=== PATIENT | male | born 1940 | race Caucasian/White ===

== ENCOUNTER 2018-04-01 07:35 | Day surgery (SDC) | payer MEDICARE ==
[2018-03-27 14:29] VITALS: BMI 30.7
[~2018-04-01 07:35] MED LIST: LACTATED RINGERS 1,000 ML IV SCH; MOXIFLOXACIN HCL 0.5% DROPS 3 ML BTL OP ONE; TETRACAINE 0.5% OPHTH (PF) DROPS 4 ML BTL OP ONE; TIMOLOL 0.5% OPHTH DROPS 5 ML BTL OP ONE
[2018-04-01] MEDS: PHENYLEPHRINE 2.5% OPHTH DRP 2ML OP NR ×3 (08:39→08:59)
[2018-04-01 08:42] VITALS: RESP 16; TEMP 97.9
[2018-04-01] MEDS: CYCLOPENTOLATE 1% OPHTH SOLN 2 ML BTL OP ONE ×3 (08:44→09:04)
[2018-04-01] MEDS ORDERED: LIDOCAINE 1% 20 ML VIAL (10MG/ML) FOR IV START INTRADERMA ONE (08:56)
[2018-04-01] MEDS ORDERED: fentaNYL (PF) 50 MCG/ML 2 ML AMP ONE (09:31)
[2018-04-01] MEDS ORDERED: MIDAZOLAM 2 MG/2 ML VIAL ONE (09:31)
[2018-04-01] MEDS ORDERED: BALANCED SALT IRRIG SOLN COMB2 15 ML IRRIG.SOLN IRRIGATION ONE (09:41)
[2018-04-01] MEDS ORDERED: HYALURONATE SODIUM INTRAOCULAR 1 EACH SYRINGE (12MG/ML) INTRAOCULA ONE (09:41)
[2018-04-01] MEDS ORDERED: EPINEPHrine (PF) 0.3 ML in BALANCED SALT IRRIG SOLN COMB2 500 ML IRRIGATION ONE (09:45)
[2018-04-01] MEDS ORDERED: LIDOCAINE 1% (PF) 10MG/ML VIAL MISCELLANE ONE (09:51)
[2018-04-01] MEDS ORDERED: ATROPINE OPHTH SOLN 1% 5ML BTL RIGHT EYE ONE (09:54)
--- NOTE | 2018-04-01 10:13 | P.OP ---
Date of Procedure: 04/01/18 Preoperative Diagnosis: NS & PSC Postoperative Diagnosis: same Procedure(s) Performed: PIOL, OD Implants: B&L AO1UV 20.75 Anesthesia: MAC Surgeon: London Spencer Estimated Blood Loss (ml): 0 Pathology: none sent Disposition: same day Indications for Procedure: blurry vision Operative Findings: No complications
[2018-04-01 10:34] VITALS: BP 139/74; PULSE 44
--- NOTE | 2018-04-01 11:03 | OP ---
OPERATIVE REPORT DATE OF SURGERY: 04/01/2018 SURGEON: Dr. London Spencer. PREOPERATIVE DIAGNOSIS: Nuclear sclerosis and subcapsular cataract. 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 OPERATION: Phacoemulsification of cataract and intraocular lens implant of the right eye. ANESTHESIA: Topical. ESTIMATED BLOOD LOSS: None. SPECIMEN TAKEN: None. NARRATIVE: After obtaining appropriate consent, the patient was brought to the operating room where he was placed on a cardiac care unit nurse and prepped and draped in the usual sterile manner. He was approached from his right temporal side. A 5.5 mm Mamta ring was inked in gentian seng and placed centrally over the patient's cornea. At the 11 o'clock position, a 1.1 mm stab blade was used to create a paracentesis port. Through this opening, 1% Xylocaine MPF with epinephrine 1:1000 MPF in balanced salt solution in a ratio of was injected into the anterior chamber. This was followed by stabilization of the anterior chamber with Amvisc. At the 9 o'clock position, a 2.75 mm catherine keratome was used to create a self-sealing corneal flap incision. At this point, the iris appeared to not respond appropriately to the proper dilation medications and because of his constant exposure to Flomax, a 7.0 mm Malyugin ring was chosen and inserted on the pupillary sphincter. A cystotome was used to begin a continuous tear capsulorrhexis which was completed using the Utrata forceps. Hydrodissection and hydrodelineation of the lens was accomplished with balanced salt solution. Phacoemulsification of the lens utilizing phaco chop was accomplished in 17.99 seconds at 8% power. Additional Xylocaine MPF with epinephrine was instilled in the anterior chamber. This was followed by removal of the remaining cortex under irrigation and aspiration. A small amount of viscoelastic was placed into the capsular bag and using both a Mesa and Pepose capsule polishing instruments, care was taken to remove as much of the cortical debris as possible from under the anterior capsular leaflets. The temporal incision was then enlarged slightly with a keratome and a Bausch and Lomb crystal lens AO1UV 20.75 diopter posterior chamber lens was inserted in the capsular bag without difficulty. The lens was rotated 180 degrees without difficulty and then rotated back to the vertical direction with the Sinskey hook. The remaining viscoelastic was removed from in and around the intra-ocular lens after the removal of the Malyugin ring. The eye was then brought to normal intraocular pressure through the paracentesis port with balanced salt solution. ReSure was used to confirm watertight integrity, especially the temporal incision. He then received 2 drops of 0.5% timolol, 2 drops of Vigamox and 2 drops of 1% atropine. He was then lightly patched and shielded in the usual manner. There were no complications from the procedure. He tolerated the procedure well and returned to outpatient recovery in good condition. MMODL / IJN: [id number] /
== END 2018-04-01 11:02 | disposition home or self-care (01) ==
LOC: OR 07:35
PROVIDERS: ATTEND Ophthalmology
DX: H25.031 Anterior subcapsular polar age-related cataract, right eye (principal); H25.11 Age-related nuclear cataract, right eye; H21.81 Floppy iris syndrome; Z88.1 Allergy status to other antibiotic agents; I10 Essential (primary) hypertension; Z79.82 Long term (current) use of aspirin; Z79.899 Other long term (current) drug therapy; Z84.89 Family history of other specified conditions; Z83.3 Family history of diabetes mellitus; Z88.2 Allergy status to sulfonamides; E78.5 Hyperlipidemia, unspecified; K21.9 Gastro-esophageal reflux disease without esophagitis
CPT/HCPCS: 66982; V2632; V2788; J2250; J0171; J3010; J2001

== ENCOUNTER 2018-05-13 06:24 | Day surgery (SDC) | payer MEDICARE, OTHER ==
[2018-05-06 11:56] VITALS: BMI 30.9
[2018-05-13 06:51] VITALS: TEMP 97.6
[2018-05-13] MEDS: CYCLOPENTOLATE 1% OPHTH SOLN 2 ML BTL OP ONE ×3 (06:51→07:06)
[2018-05-13] MEDS: PHENYLEPHRINE 2.5% OPHTH DRP 2ML OP NR ×3 (06:53→07:11)
[2018-05-13] MEDS ORDERED: LIDOCAINE 1% 20 ML VIAL (10MG/ML) FOR IV START INTRADERMA ONE (06:56)
[2018-05-13] MEDS ORDERED: LIDOCAINE 1% (PF) 10MG/ML VIAL SQ ONE (07:35)
[2018-05-13] MEDS ORDERED: BALANCED SALT IRRIG SOLN COMB2 15 ML IRRIG.SOLN IRRIGATION ONE (07:35)
[2018-05-13] MEDS ORDERED: HYALURONATE SODIUM INTRAOCULAR 1 EACH SYRINGE (12MG/ML) INTRAOCULA ONE (07:35)
[2018-05-13] MEDS ORDERED: MIDAZOLAM 2 MG/2 ML VIAL ONE (07:36)
[2018-05-13] MEDS ORDERED: EPINEPHrine (PF) 0.3 ML in BALANCED SALT IRRIG SOLN COMB2 500 ML IRRIGATION ONE (07:49)
[2018-05-13] MEDS ORDERED: EPINEPHrine 1 MG/ML 1 ML AMP IRRIGATION ONE (07:50)
[2018-05-13] MEDS ORDERED: ATROPINE OPHTH SOLN 1% 5ML BTL LEFT EYE ONE (08:15)
--- NOTE | 2018-05-13 08:19 | P.OP ---
Date of Procedure: 05/13/18 Preoperative Diagnosis: NS & CS Postoperative Diagnosis: same Procedure(s) Performed: PIOL, OS Implants: AO1UV 21.00 Anesthesia: MAC Surgeon: London Spencer Estimated Blood Loss (ml): 0 Pathology: none sent Condition: stable Disposition: same day Indications for Procedure: No complications Operative Findings: same
[2018-05-13 08:53] VITALS: RESP 18
[2018-05-13 09:46] VITALS: BP 148/80; PULSE 80
--- NOTE | 2018-05-13 11:28 | OP ---
OPERATIVE REPORT DATE OF SURGERY: 05/13/2018. PROCEDURE: Phacoemulsification of cataract and intraocular lens implant of the left eye. PREOPERATIVE DIAGNOSIS: Nuclear sclerosis, cortical sclerosis. POSTOPERATIVE DIAGNOSIS: Nuclear sclerosis, cortical sclerosis. NARRATIVE: After obtaining the appropriate consent, the patient was brought to the operating room. There the patient was placed under cardiac monitoring, prepped and draped in the usual sterile manner. The patient was approached from the [facility] temporal side. The Mamta ring inked in gentian seng was placed centrally on the cornea. At the 11 o'clock position, a 1.1 mm keratome was used to create a paracentesis port. Through this opening, 1% Xylocaine MPF 50/50 mix with balanced salt solution was injected into the anterior chamber. This was followed by stabilization of the anterior chamber with Amvisc viscoelastic. At the 9 o'clock position, a 2.75 mm catherine keratome was used to create a self-scaling corneal flap incision in a Langerman fashion. Through this opening, a cystotome was introduced to begin a continuous tear capsulorrhexis which was completed using the Utrata forceps. Care was taken to ensure that the capsulorrhexis was at least the size of the leon on the anterior cornea. Hydrodissection and hydrodelineation of the lens was accomplished with balanced salt solution. Phacoemulsification of the lens utilizing phaco chop was accomplished in 16.79 seconds at 9% power. Addition Xylocaine MPF was instilled into the anterior chamber. This was followed by removal of the remaining cortex under irrigation and aspiration along with careful polishing of the posterior capsule in a capsule vacuum mode. Additional Amvisc viscoelastic was then used to stabilize the capsular bag, and the Bausch and Lomb Crystalens AO1UV 21.0 diopters intraocular lens was injected into the capsular bag without difficult. The lens was rotated 270 degrees so that the haptics resided at the 6 and 12 o'clock positions, and all remaining viscoelastic was then removed from within the capsular bag and around the anterior chamber. The eye was brought to normal intraocular pressure through the paracentesis port along with slight hydration of the incision sites. Watertight integrity was confirmed using a fluorescein strip. The patient then received 2 drops of 0.5% timolol followed by 2 drops of Vigamox and 2 drops of 1% atropine. The patient was then lightly patched and shielded in the usual manner. There was no complications from the procedure. The patient tolerated the procedure well and was returned to outpatient recovery in good condition. CARMENL / IJN: [id number] /
== END 2018-05-13 09:15 | disposition home or self-care (01) ==
LOC: OR 06:24
PROVIDERS: ATTEND Ophthalmology
DX: H25.12 Age-related nuclear cataract, left eye (principal); H25.012 Cortical age-related cataract, left eye; H26.40 Unspecified secondary cataract; H43.391 Other vitreous opacities, right eye; H53.002 Unspecified amblyopia, left eye; Z96.1 Presence of intraocular lens; I10 Essential (primary) hypertension; K21.9 Gastro-esophageal reflux disease without esophagitis; N40.0 Benign prostatic hyperplasia without lower urinary tract symptoms; Z79.82 Long term (current) use of aspirin; Z79.899 Other long term (current) drug therapy; Z88.2 Allergy status to sulfonamides
CPT/HCPCS: 66984; V2632; V2788; J2250; J0171 ×2; J2001

== ENCOUNTER 2019-01-29 05:51 | Day surgery (SDC) | payer MEDICARE, OTHER ==
[2019-01-25 13:51] VITALS: BMI 32.1
[~2019-01-29 05:51] MED LIST changes: -MOXIFLOXACIN HCL 0.5% DROPS 3 ML BTL OP ONE; -TETRACAINE 0.5% OPHTH (PF) DROPS 4 ML BTL OP ONE; -TIMOLOL 0.5% OPHTH DROPS 5 ML BTL OP ONE
[2019-01-29] MEDS ORDERED: SODIUM CHLORIDE 0.9% 1,000 ML IV SCH ×2 (06:03→07:45)
[2019-01-29 06:36] VITALS: TEMP 98.3
[2019-01-29 06:42] LABS: Basophils % (A) 1 %; Eosinophils # (A) 0.2 k/uL (0-0.7); Eosinophils % (A) 2 %; HCT 46.1 % (39.0-53.0); Lymphocytes # (A) 1.3 k/uL (1.0-4.8); Lymphocytes % (A) 21 %; MCH 31.1 pg (25.0-35.0); MCHC 32.5 g/dL (31.0-37.0); MCV 95.8 fL (80.0-100.0); Mean Platelet Volume 6.3; Monocytes # (A) 0.5 k/uL (0-1.0); Monocytes % (A) 8 %; Neutrophils # (A) 3.9 k/uL (1.3-7.7); Neutrophils % (A) 64 %; Platelet Count 233 k/uL (150-450); RBC 4.81 m/uL (4.30-5.90); RDW 12.9 % (11.5-15.5); WBC 6.1 k/uL (3.8-10.6)
[2019-01-29 06:52] LABS: African American GFR (CKD) >90 (>60 ml/min/1.73 sqM); Anion Gap 8 mmol/L; Blood Urea Nitrogen 17 mg/dL (9-20); Calcium 9.3 mg/dL (8.4-10.2); Carbon Dioxide 29 mmol/L (22-30); Chloride 105 mmol/L (98-107); Glucose 113 mg/dL (74-99); Potassium 4.3 mmol/L (3.5-5.1); Sodium 142 mmol/L (137-145)
[2019-01-29] MEDS ORDERED: PROPOFOL 10 MG/ML 20 ML VIAL IV ONE (07:20)
[2019-01-29] MEDS ORDERED: BENZOCAINE SPRAY 1 CAN MUCOUS MEM ONE ×2 (07:24→07:26)
--- NOTE | 2019-01-29 08:04 | CE ---
CARDIAC ELECTROPHYSIOLOGY REPORT CARDIOVERSION PROCEDURE NOTE: INDICATION: Atrial fibrillation. PROCEDURE: After explaining the procedure to the patient, its risks and the complications, after obtaining sedated state and performing transesophageal echocardiogram, a synchronized biphasic cardioversion using 200 joules was performed with religious of normal sinus rhythm. There was no immediate complication. ETHAN / TACHO: [id number] /
--- NOTE | 2019-01-29 08:04 | ECHOT ---
TRANSESOPHAGEAL ECHOCARDIOGRAM INDICATION: Evaluation of left atrial appendage. PROCEDURE: After explaining the procedure to the patient, its risks and the complications, his blood pressure, heart rate, O2 saturation was monitored. The throat was sprayed with Cetacaine. He received sedation per anesthesia department. The probe was introduced in the esophagus. Images were obtained. Following that, the probe was removed there was no immediate complication. FINDINGS: Left atrial size is mildly dilated. Spontaneous contrast was noted. Left atrial appendage is normal. Left ventricular size is normal. There is evidence of mild global hypokinesis, estimated ejection fraction 45% to 50%. The aortic valve, mitral valve and tricuspid valve are normal. The descending thoracic aorta appears to be normal. Contrast bubble study revealed no shunting across the interatrial septum. No pericardial effusion was noted. Doppler pulse wave and color Doppler were obtained revealed mild mitral and tricuspid regurgitation. There was no shunting across the interatrial septum. CONCLUSION: 1. Mildly dilated left atrium with normal appearance of the left atrial appendage with spontaneous contrast. 2. Normal left ventricular size with mild global hypokinesis. 3. Mild mitral and tricuspid regurgitation. 4. No shunting across the interatrial septum. 5. Normal appearance of the descending thoracic aorta. MMODL / IJN: [id number] /
[2019-01-29 08:34] VITALS: RESP 18
[2019-01-29] MEDS ORDERED: POTASSIUM CHLORIDE 10 MEQ PO SCH (09:00)
[2019-01-29] MEDS ORDERED: OXYBUTYNIN CHLORIDE 5 MG TAB PO SCH (09:00)
[2019-01-29] MEDS ORDERED: NON-FORMULARY DRUG (Omeprazole [Omeprazole] 20 MG) PO SCH (09:00)
[2019-01-29] MEDS ORDERED: TAMSULOSIN 0.4 MG CAP.ER.24H PO SCH (09:00)
[2019-01-29] MEDS ORDERED: LISINOPRIL-HCTZ 10-12.5 MG 1 EACH TAB PO SCH (09:00)
[2019-01-29] MEDS ORDERED: APIXABAN 2.5 MG TABLET PO SCH (09:00)
[2019-01-29] MEDS ORDERED: NON-FORMULARY DRUG (Ubidecarenone [Co Q-10] 200 MG) PO SCH (09:00)
[2019-01-29 10:06] VITALS: BP 143/83; PULSE 68
[2019-01-29] MEDS ORDERED: PRAVASTATIN SODIUM 20 MG TAB PO SCH (21:00)
== END 2019-01-29 09:22 | disposition home or self-care (01) ==
LOC: CATHCVL 05:51
PROVIDERS: ATTEND Internal Medicine Interventional Cardiology
DX: I48.1 Persistent atrial fibrillation (principal); I08.1 Rheumatic disorders of both mitral and tricuspid valves; I10 Essential (primary) hypertension; E78.2 Mixed hyperlipidemia; N42.9 Disorder of prostate, unspecified; K21.9 Gastro-esophageal reflux disease without esophagitis; Z79.01 Long term (current) use of anticoagulants; Z79.899 Other long term (current) drug therapy; Z88.2 Allergy status to sulfonamides
CPT/HCPCS: 93312; 93320; 93325; 92960; 80048; 85025; J2704

== ENCOUNTER 2019-03-17 06:00 | Observation (INO) | payer MEDICARE ==
[2019-03-17] MEDS ORDERED: SODIUM CHLORIDE 0.9% 1,000 ML IV STA ×2 (06:13)
[2019-03-17] MEDS ORDERED: ASPIRIN 81 MG PO STA (06:13)
[2019-03-17 06:36] LABS: Basophils % (A) 1 %; Eosinophils # (A) 0.2 k/uL (0-0.7); Eosinophils % (A) 3 %; HCT 45.2 % (39.0-53.0); HGB 15.1 gm/dL (13.0-17.5); Lymphocytes # (A) 1.5 k/uL (1.0-4.8); Lymphocytes % (A) 24 %; MCH 31.5 pg (25.0-35.0); MCHC 33.3 g/dL (31.0-37.0); MCV 94.6 fL (80.0-100.0); Mean Platelet Volume 6.5; Monocytes # (A) 0.5 k/uL (0-1.0); Monocytes % (A) 8 %; Neutrophils # (A) 3.9 k/uL (1.3-7.7); Neutrophils % (A) 62 %; Platelet Count 239 k/uL (150-450); RBC 4.79 m/uL (4.30-5.90); RDW 12.6 % (11.5-15.5); WBC 6.3 k/uL (3.8-10.6)
[2019-03-17] MEDS ORDERED: NITROGLYCERIN SL TABS 0.4 MG TAB SUBLINGUAL STA (06:38)
--- NOTE | 2019-03-17 06:42 | ED ---
Chest Pain HPI - General Chief Complaint: Chest Pain Stated Complaint: Chest Pain Time Seen by Provider: 03/17/19 06:13 Source: patient, RN notes reviewed, old records reviewed Mode of arrival: ambulatory Limitations: no limitations - History of Present Illness Initial Comments: Patient a 79-year-old male with a history of recently cardioversion for A. fib. Patient reports procedure was done in January by Dr. Oconnor. . He presents today with persistent heaviness on his chest for the past 2-3 days. Patient states that he's had an occasional cough, no fever or chills. Patient reports that he states his pain is a 1 out of 10. He denies any history of stents. He has a history of hypertension and hyperlipidemia. states that he has complained of general fatigue. He has been doing some active work and states that his chest pains that seem to be worse with exertion. Patient states that he's had no fevers or chills. Denies history of blood clots. - Related Data Home Medications Medication Instructions Recorded Confirmed Calcium Carb/Vitamin D3/Vit K1 1 each PO DAILY 03/27/18 03/17/19 [Viactiv Soft Chew] Lisinopril-Hctz 10-12.5 mg 1 tab PO DAILY 03/27/18 03/17/19 [Zestoretic 10-12.5] Omeprazole 20 mg PO DAILY 03/27/18 03/17/19 Potassium Chloride [Klor-Con 10 meq PO DAILY 03/27/18 03/17/19 Sprinkle] Pravastatin Sodium [Pravachol] 20 mg PO HS 03/27/18 03/17/19 Tamsulosin [Flomax] 0.4 mg PO DAILY 03/27/18 03/17/19 Ubidecarenone [Co Q-10] 200 mg PO DAILY 03/27/18 03/17/19 Aspirin 162 mg PO ONCE 03/17/19 03/17/19 Neurobrin 1 cap PO DAILY 03/17/19 03/17/19 [place]-3 Fatty Acids/Fish Oil [Fish 1 cap PO DAILY 03/17/19 03/17/19 Oil 1,000 mg Softgel] Oxybutynin Chloride [Ditropan XL] 10 mg PO DAILY 03/17/19 03/17/19 Previous Rx's Medication Instructions Recorded Apixaban [Eliquis] 5 mg PO BID #0 01/29/19 Allergies Allergy/AdvReac Type Severity Reaction Status Date / Time Sulfa (Sulfonamide Allergy Rash/Hives Verified 03/17/19 06:54 Antibiotics) Review of Systems ROS Statement: Those systems with pertinent positive or pertinent negative responses have been documented in the HPI. ROS Other: All systems not noted in ROS Statement are negative. EKG Findings - EKG Comments: EKG Findings:: EKG performed at 6. CBC shows normal sinus rhythm with sinus arrhythmia. Normal EKG. Ventricular 60 bpm. Was 186 most seconds. She episcopalian is 98 ms. QT QTc is 440 01/05/1946. Past Medical History Past Medical History: Atrial Fibrillation, GERD/Reflux, Hyperlipidemia, Hypertension, Pneumonia, Prostate Disorder Additional Past Medical History / Comment(s): cardioversion for afib, History of Any Multi-Drug Resistant Organisms: None Reported Past Surgical History: Tonsillectomy Additional Past Surgical History / Comment(s): eye muscle surgery, punctured lung repair, Cataract marva eye. Past Anesthesia/Blood Transfusion Reactions: Motion Sickness Past Psychological History: No Psychological Hx Reported Smoking Status: Never smoker Past Alcohol Use History: None Reported Past Drug Use History: None Reported - Past Family History Mother Family Medical History: Cancer Additional Family Medical History / Comment(s): skin cancer General Exam - General Exam Comments Initial Comments: This is a 79-year-old male. Alert and oriented 3. Patient is here with family. He appears in no acute distress. Limitations: no limitations General appearance: alert, in no apparent distress Head exam: Present: atraumatic, normocephalic, normal inspection Eye exam: Present: normal appearance ENT exam: Present: normal exam Neck exam: Present: normal inspection. Absent: tenderness, meningismus, lymphadenopathy Respiratory exam: Present: normal lung sounds bilaterally. Absent: respiratory distress, wheezes, rales, rhonchi, stridor Cardiovascular Exam: Present: regular rate GI/Abdominal exam: Present: soft, normal bowel sounds. Absent: distended, tenderness, guarding, rebound, rigid Extremities exam: Present: normal inspection, full ROM, normal capillary refill. Absent: tenderness, pedal edema, joint swelling, calf tenderness Back exam: Present: normal inspection Neurological exam: Present: alert, oriented X3, CN II-XII intact Psychiatric exam: Present: normal affect, normal mood Skin exam: Present: warm, dry, intact, normal color. Absent: rash Course Vital Signs 03/17/19 03/17/19 03/17/19 06:03 06:30 07:18 Temperature 97.8 F 97.9 F Pulse Rate 59 L 60 57 L Respiratory 18 18 18 Rate Blood Pressure 152/87 156/97 141/81 O2 Sat by Pulse 95 95 Oximetry Chest Pain [facility] Patient is a 79-year-old male presents with 3 days of chest heaviness. He reports his pain is a 1 out of 10. His history of atrial fibrillation which recently was cardioverted. 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 zofia velazquez. At this time Patient rates his pain to be 210. He has reported worse with exertion. He does have a history of hyperlipidemia, and hypertension. Patient's EKG did show some diminished T waves compared to previous EKG and Hoa. Initial troponin test is negative. D-dimer and BNP are normal. Chest x-ray shows evidence of Since the left lung base left basilar atelectasis. Peribronchial cuffing and lateral view suggesting reactive or infectious airway disease and bronchitis. Enlarged cardiomediastinal silhouette no priors from comparison of the study. Does report occasional coughing. Discussed the Patient on breathing treatments as needed. He has no significant wheezing. At this time patient will be admitted with cardiac consult. Discussed case with Dr. Geiger, whom discussed case with Dr. Anders. Disposition Clinical Impression: Chest pain Disposition: ADMITTED IP TO THIS HOSP Condition: Stable Is patient prescribed a controlled substance at d/c from ED?: No Referrals: Avery Browning MD [Primary Care Provider] - 1-2 days Time of Disposition: 08:14
[2019-03-17 06:52] LABS: D-Dimer 0.27 mg/L FEU (<0.60); INR 0.9 (<1.2); Partial Thromboplastin Time 26.6 sec (22.0-30.0); Prothrombin Time 10.2 sec (9.0-12.0)
[2019-03-17 06:58] LABS: ALT 54 U/L (21-72); AST 36 U/L (17-59); African American GFR (CKD) >90 (>60 ml/min/1.73 sqM); Albumin 4.2 g/dL (3.5-5.0); Alkaline Phosphatase 54 U/L (38-126); Anion Gap 9 mmol/L; Blood Urea Nitrogen 16 mg/dL (9-20); Calcium 9.1 mg/dL (8.4-10.2); Carbon Dioxide 29 mmol/L (22-30); Chloride 103 mmol/L (98-107); Glucose 116 mg/dL (74-99); Magnesium 1.8 mg/dL (1.6-2.3); Potassium 4.2 mmol/L (3.5-5.1); Sodium 141 mmol/L (137-145); Total Bilirubin 0.5 mg/dL (0.2-1.3); Total Protein 7.1 g/dL (6.3-8.2)
--- NOTE | 2019-03-17 07:34 | XR ---
EXAMINATION TYPE: XR chest 2V DATE OF EXAM: 03/17/2019 COMPARISON: NONE HISTORY: Chest pain with history of atrial fibrillation TECHNIQUE: Frontal and lateral views of the chest are obtained. FINDINGS: Enlarged cardiac mediastinal silhouette and slight left hemidiaphragm elevation particular ly at the lateral margin with left basilar atelectasis. Peribronchial cuffing is seen on the lateral view. No focal consolidation, pleural effusion or pneumothorax. Pleural reaction is seen at the left lung base. Osseous structures appear intact with mild multilevel degenerative change. IMPRESSION: 1. Pleural reaction at the left lung base and left basilar atelectasis. 2. Peribronchial cuffing on the lateral view suggesting reactive or infectious airway disease such as bronchitis. 3. Enlarged cardiomediastinal silhouette. No priors for comparison of stability.
[2019-03-17] MEDS ORDERED: NITROGLYCERIN SL TABS 0.4 MG TAB SUBLINGUAL PRN (08:14)
--- NOTE | 2019-03-17 10:00 | P.HPIM ---
History of Present Illness H&P Date: 03/17/19 This is a 79-year-old male patient of Dr. Browning. Patient presented with complaints of chest pressure that has been occurring intermittently for 2-3 days. Patient reports that it feels like a band around his chest. Patient recently underwent cardioversion for atrial fibrillation in January with Dr. Oconnor. Patient has a past medical history of atrial fibrillation which she is maintained on eliquis, GERD, hyperlipidemia, hypertension, pneumonia, prostate disorder and tonsillectomy. Patient reports any recent illness. 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 Chest x-ray completed showing pleural reaction at the lung base and left basal atelectasis. Bronchial cuffing on the lateral view suggesting reactive or infectious airway disease such as bronchitis. Enlarged cardiomediastinal silhouette. No priors for comparison of stability. EKG completed showing normal sinus rhythm with sinus arrhythmia. Troponin negative. D-dimer 0.27. Cardiology services have been consulted. At this time patient denies any chest pain or shortness of breath. Patient denies nausea vomiting or diarrhea. Patient denies any urinary burning or frequency. Review of Systems Please refer to HPI otherwise unremarkable Past Medical History Past Medical History: Atrial Fibrillation, GERD/Reflux, Hyperlipidemia, Hypertension, Pneumonia, Prostate Disorder Additional Past Medical History / Comment(s): cardioversion for afib, History of Any Multi-Drug Resistant Organisms: None Reported Past Surgical History: Tonsillectomy Additional Past Surgical History / Comment(s): eye muscle surgery, punctured lung repair, Cataract marva eye. Past Anesthesia/Blood Transfusion Reactions: Motion Sickness Past Psychological History: No Psychological Hx Reported Smoking Status: Never smoker Past Alcohol Use History: None Reported Past Drug Use History: None Reported - Past Family History Mother Family Medical History: Cancer Additional Family Medical History / Comment(s): skin cancer Medications and Allergies Home Medications Medication Instructions Recorded Confirmed Type Calcium Carb/Vitamin D3/Vit K1 1 each PO DAILY 03/27/18 03/17/19 History [Viactiv Soft Chew] Lisinopril-Hctz 10-12.5 mg 1 tab PO DAILY 03/27/18 03/17/19 History [Zestoretic 10-12.5] Omeprazole 20 mg PO DAILY 03/27/18 03/17/19 History Potassium Chloride [Klor-Con 10 meq PO DAILY 03/27/18 03/17/19 History Sprinkle] Pravastatin Sodium [Pravachol] 20 mg PO HS 03/27/18 03/17/19 History Tamsulosin [Flomax] 0.4 mg PO DAILY 03/27/18 03/17/19 History Ubidecarenone [Co Q-10] 200 mg PO DAILY 03/27/18 03/17/19 History Apixaban [Eliquis] 5 mg PO BID #0 01/29/19 03/17/19 Rx Neurobrin 1 cap PO DAILY 03/17/19 03/17/19 History [place]-3 Fatty Acids/Fish Oil [Fish 1 cap PO DAILY 03/17/19 03/17/19 History Oil 1,000 mg Softgel] Oxybutynin Chloride [Ditropan XL] 10 mg PO DAILY 03/17/19 03/17/19 History Allergies Allergy/AdvReac Type Severity Reaction Status Date / Time Sulfa (Sulfonamide Allergy Rash/Hives Verified 03/17/19 09:41 Antibiotics) Physical Exam Vitals: Vital Signs Temp Pulse Pulse Resp BP BP Pulse Ox 03/17/19 09:10 97.4 F L 46 L 18 128/68 95 03/17/19 08:47 97.9 F 57 L 18 141/81 95 03/17/19 07:18 97.9 F 57 L 18 141/81 95 03/17/19 06:30 60 18 156/97 03/17/19 06:03 97.8 F 59 L 18 152/87 95 Intake and Output 03/16/19 03/17/19 03/17/19 22:59 06:59 14:59 Other: Weight 104.326 kg Head normocephalic Neck supple Lungs clear to auscultation bilaterally no wheezing or crackles Heart regular rate and rhythm S1-S2, no rub or gallop Abdomen is soft nontender nondistended positive bowel sounds no hepatospl enomegaly Extremities no edema Neuro alert and orientated to 3 Results CBC & Chem 7: 03/17/19 06:18 03/17/19 06:18 Labs: Abnormal Lab Results - Last 24 Hours (Table) 08/14/19 Range/Units 06:18 Glucose 116 H (74-99) mg/dL Assessment and Plan Assessment: 1. Chest pain. Troponin negative. D-dimer 0.27. EKG completed showing normal sinus rhythm with sinus arrhythmia. Chest x-ray completed showing pleural reaction the left lung base and left basilar atelectasis. Peribronchial cuffing on the lateral view suggesting reactive or infectious airway disease such as bro nchitis. Enlarged cardiomediastinal silhouette. No priors for comparison of stability. Cardiology services have been consulted 2. Recent cardioversion in January for atrial fibrillation 3. History of persistent atrial fibrillation. Patient maintained on eliquis 4. Bradycardia. 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 Heart rate currently in the 40s. Patient's home medication of lisinopril hydrochlorothi azide currently on hold until evaluated by cardiology 5. History of GERD 6. History of hyperlipidemia. Statin resumed 7. History of essential hypertension 8. History of pneumonia 9. History of prostate disorder DVT prophylaxis eliquis. GI prophylaxis Pepcid Time with Patient: Greater than 30 (Greater than 60% of the total time spent in counseling and coordination of care. I performed an examination of the patient and discussed their management with the Nurse Practitioner. I have reviewed the Nurse Practitioner's notes and agree with the documented findings and plan of care)
[2019-03-17] MEDS ORDERED: TAMSULOSIN 0.4 MG CAP.ER.24H PO SCH ×2 (11:52→21:00)
[2019-03-17] MEDS ORDERED: OXYBUTYNIN 10 MG TAB.ER.24 PO SCH ×2 (12:00→21:00)
[2019-03-17] MEDS: PANTOPRAZOLE 40 MG TABLET PO SCH (12:16)
[2019-03-17 13:09] LABS: T4, Free (Free Thyroxine) 0.73 ng/dL (0.78-2.19)
[2019-03-17] MEDS ORDERED: RX INFO: IV CONTRAST WAS GIVEN 1 EACH MISC MISCELLANE PRN (14:17)
--- NOTE | 2019-03-17 14:30 | P.CNPUL ---
History of Present Illness Consult date: 03/17/19 Reason for consult: chest pain History of present illness: A 79-year-old female patient was having chest pain. The patient came in with anterior chest and it wasn't anything and going to his back. He was working on some old cars and he thinks that could've pulses chest wall muscles. Nevertheless, the pain has been going on even prior to that. He has a chronic congested cough. Minimal sputum production. No fever or chills. No hemoptysis or pleurisy. The pain was not related to activity or breathing. Chest x-ray shows cardiomegaly and some pleural reaction on the left. The patient is on long-term anticoagulation regarding previous history of atrial fibrillation for which she has undergone cardioversion. Troponin is a been negative. EKG showed a normal sinus rhythm. D-dimer was at 0.27 and the patient is on long-term anticoagulation with Eliquis. No nausea. No vomiting. No aspiration. No smoking. Most of bronchial asthma. He has not utilized any form of respiratory medications on inhalers. The patient has also hypertension and hyperlipidemia. Review of Systems Constitutional: Denies chills, Denies fever Eyes: denies as per HPI, denies blurred vision, denies bulging eye, denies decreased vision, denies diplopia, denies discharge, denies dry eye, denies irritation, denies itching, denies pain, denies photophobia, denies loss of peripheral vision, denies loss of vision, denies tunnel vision/blind spots Ears: deny: decreased hearing, ear discharge, earache, tinnitus Ears, nose, mouth and throat: Denies headache, Denies sore throat Breasts: absent: as per HPI, gynecomastia Cardiovascular: Reports chest pain Respiratory: Denies cough Gastrointestinal: Reports as per HPI Genitourinary: Reports as per HPI Musculoskeletal: Reports as per HPI Musculoskeletal: absent: ankle pain, ankle stiffness, ankle swelling, as per HPI, elbow pain, elbow stiffness, elbow swelling, foot pain, foot stiffness, foot swelling, hand pain, hand stiffness, hand swelling, hip pain, hip stiffness, hip swelling, knee pain, knee stiffness, knee swelling, shoulder pain, shoulder stiffness, shoulder swelling, wrist pain, wrist stiffness, wrist swelling Integumentary: Reports as per HPI Neurological: Reports as per HPI Psychiatric: Reports as per HPI Endocrine: Reports as per HPI Hematologic/Lymphatic: Reports as per HPI Allergic/Immunologic: Reports as per HPI Past Medical History Past Medical History: Atrial Fibrillation, GERD/Reflux, Hyperlipidemia, Hypertension, Pneumonia, Prostate Disorder Additional Past Medical History / Comment(s): cardioversion for afib and her current rhythm is sinus, hypertension, hyperlipidemia, BPH, obesity with a BMI of 32.1, remote history of pneumothorax History of Any Multi-Drug Resistant Organisms: None Reported Past Surgical History: Tonsillectomy Additional Past Surgical History / Comment(s): eye muscle surgery, punctured lung repair, Cataract marva eye. Past Anesthesia/Blood Transfusion Reactions: Motion Sickness Past Psychological History: No Psychological Hx Reported Smoking Status: Never smoker Past Alcohol Use History: None Reported Past Drug Use History: None Reported - Past Family History Mother Family Medical History: Cancer Additional Family Medical History / Comment(s): skin cancer Medications and Allergies Home Medications Medication Instructions Recorded Confirmed Type Calcium Carb/Vitamin D3/Vit K1 1 each PO DAILY 03/27/18 03/17/19 History [Viactiv Soft Chew] Lisinopril-Hctz 10-12.5 mg 1 tab PO DAILY 03/27/18 03/17/19 History [Zestoretic 10-12.5] Omeprazole 20 mg PO DAILY 03/27/18 03/17/19 History Potassium Chloride [Klor-Con 10 meq PO DAILY 03/27/18 03/17/19 History Sprinkle] Pravastatin Sodium [Pravachol] 20 mg PO HS 03/27/18 03/17/19 History Tamsulosin [Flomax] 0.4 mg PO DAILY 03/27/18 03/17/19 History Ubidecarenone [Co Q-10] 200 mg PO DAILY 03/27/18 03/17/19 History Apixaban [Eliquis] 5 mg PO BID #0 01/29/19 03/17/19 Rx Neurobrin 1 cap PO DAILY 03/17/19 03/17/19 History [place]-3 Fatty Acids/Fish Oil [Fish 1 cap PO DAILY 03/17/19 03/17/19 History Oil 1,000 mg Softgel] Oxybutynin Chloride [Ditropan XL] 10 mg PO DAILY 03/17/19 03/17/19 History Allergies Allergy/AdvReac Type Severity Reaction Status Date / Time Sulfa (Sulfonamide Allergy Rash/Hives Verified 03/17/19 09:41 Antibiotics) Physical Exam Vitals: Vital Signs Temp Pulse Pulse Resp BP BP Pulse Ox 03/17/19 12:00 97.6 F 50 L 18 144/80 96 03/17/19 09:10 97.4 F L 46 L 18 128/68 95 03/17/19 08:47 97.9 F 57 L 18 141/81 95 03/17/19 07:18 97.9 F 57 L 18 141/81 95 03/17/19 06:30 60 18 156/97 03/17/19 06:03 97.8 F 59 L 18 152/87 95 Intake and Output 03/16/19 03/17/19 03/17/19 22:59 06:59 14:59 Intake Total 600 Balance 600 Intake: Oral 600 Other: Weight 104.326 kg The patient appeared well nourished and normally developed. Vital signs as documented. Head exam is unremarkable. No scleral icterus or corneal arcus noted. Neck is without jugular venous distension, thyromegaly, or carotid br uits. Carotid upstrokes are brisk bilaterally. Lungs are clear to auscultation and percussion. Cardiac exam reveals the PMI to be normally sized and situated. Rhythm is regular. First and second heart sounds normal. No murmurs, rubs or gallops. Abdominal exam reveals normal bowel sounds, no masses, no organomegaly and no aortic enlargement. Extremities are nonedematous and both femoral and pedal pulses are normal.Examination of the skin revealed no evidence of significant rashes, suspicious appearing nevi or other concerning lesions. Neurologically the patient is awake and alert and there is no focal neurological deficits. Results - Laboratory Findings CBC and BMP: 03/17/19 06:18 03/17/19 06:18 PT/INR, D-dimer PT 10.2 sec (9.0-12.0) 03/17/19 06:18 INR 0.9 (<1.2) 03/17/19 06:18 D-Dimer 0.27 mg/L FEU (<0.60) 03/17/19 06:18 Abnormal lab findings: Abnormal Labs 03/17/19 03/17/19 06:18 12:19 Glucose 116 H Free T4 0.73 L - Diagnostic Findings Chest x-ray: image reviewed Assessment and Plan Plan: 1 chest pain, nonspecific, nevertheless the top of the pain with radiation to the back obviously raises the concern towards aortic disease status post dissection. No evidence of an acute coronary event. EKG showing normal sinus rhythm. Chest x-ray is free of any acute pulmonary infiltrates. Pneumonia is doubtful. Pulmonary embolism is doubtful as the patient is on long-term anticoagulation. Cardiac enzymes have been negative 2 history of atrial fibrillation current rhythm is sinus post cardioversion 3 hypertension 4 hyperlipidemia 5 BPH 6 obesity Plan Computed tomography scan of the chest with contrast for the above-mentioned reasons. Continue anticoagulation for now. Cardiology is on the case. We'll follow.
--- NOTE | 2019-03-17 16:26 | CT ---
EXAMINATION TYPE: CT chest w con DATE OF EXAM: 03/17/2019 COMPARISON: None HISTORY: chest pain CT DLP: 506.9 mGycm Automated exposure control for dose reduction was used. CONTRAST: CT scan of the chest is performed with IV Contrast, patient injected with 100 mL of Isovue 300. FINDINGS: LUNGS: Subpleural bleb is seen along the lateral right lower lobe. Linear areas of scarring/atelectas is are seen in the left lateral costophrenic angle. There is adjacent lateral fourth, fifth, sixth an d seventh rib fractures. No suspicious nodules, masses or infiltrates. No pleural effusion. No pneumo thorax. MEDIASTINUM: There are no greater than 1 cm hilar or mediastinal lymph nodes. No pericardial effusi on is seen. Calcified right hilar lymph nodes. OTHER: Small calcifications seen within the spleen. There is also a small 0.9 cm cyst within the med ial aspect of the spleen. Otherwise, visualized upper abdomen is grossly unremarkable. IMPRESSION: Left nondisplaced fourth, fifth, sixth and seventh rib fractures with underlying pleural thickening and left lower lobe and scarring/atelectasis. Findings suggestive of previous granulomatous disease.
[2019-03-17] MEDS ORDERED: PRAVASTATIN SODIUM 20 MG TAB PO SCH (21:00)
[2019-03-17] MEDS: APIXABAN 5 MG TAB PO SCH (21:43)
[2019-03-18 06:05] LABS: Basophils % (A) 0 %; Eosinophils # (A) 0.2 k/uL (0-0.7); Eosinophils % (A) 3 %; HCT 45.2 % (39.0-53.0); HGB 15.2 gm/dL (13.0-17.5); Lymphocytes # (A) 1.7 k/uL (1.0-4.8); Lymphocytes % (A) 25 %; MCH 32.3 pg (25.0-35.0); MCHC 33.7 g/dL (31.0-37.0); MCV 95.8 fL (80.0-100.0); Mean Platelet Volume 6.8; Monocytes # (A) 0.5 k/uL (0-1.0); Monocytes % (A) 8 %; Neutrophils # (A) 3.9 k/uL (1.3-7.7); Neutrophils % (A) 61 %; Platelet Count 220 k/uL (150-450); RBC 4.72 m/uL (4.30-5.90); RDW 14.3 % (11.5-15.5); WBC 6.5 k/uL (3.8-10.6)
[2019-03-18 06:16] LABS: ALT 51 U/L (21-72); AST 39 U/L (17-59); African American GFR (CKD) >90 (>60 ml/min/1.73 sqM); Albumin 4.4 g/dL (3.5-5.0); Alkaline Phosphatase 51 U/L (38-126); Anion Gap 7 mmol/L; Blood Urea Nitrogen 12 mg/dL (9-20); Calcium 9.4 mg/dL (8.4-10.2); Carbon Dioxide 32 mmol/L (22-30); Chloride 104 mmol/L (98-107); Cholesterol 171 mg/dL (<200); Glucose 108 mg/dL (74-99); HDL Cholesterol 41 mg/dL (40-60); LDL Cholesterol,Calculated 93 mg/dL (0-99); Potassium 4.7 mmol/L (3.5-5.1); Sodium 143 mmol/L (137-145); Total Bilirubin 0.6 mg/dL (0.2-1.3); Total Protein 7.5 g/dL (6.3-8.2); Triglycerides 187 mg/dL (<150)
[2019-03-18] MEDS ORDERED: PANTOPRAZOLE 40 MG TABLET PO SCH (07:30)
[2019-03-18] MEDS: PANTOPRAZOLE 40 MG TABLET PO SCH (08:44)
[2019-03-18] MEDS: APIXABAN 5 MG TAB PO SCH (08:44)
[2019-03-18] MEDS ORDERED: OXYBUTYNIN 10 MG TAB.ER.24 PO SCH (09:00)
[2019-03-18] MEDS ORDERED: POTASSIUM CHLORIDE ER 10 MEQ TAB.ER.PRT PO SCH (09:00)
[2019-03-18] MEDS ORDERED: CALCIUM CARB PO SCH (09:00)
[2019-03-18] MEDS ORDERED: NON-FORMULARY DRUG (Omega-3 Fatty Acids/Fish Oil [Fish Oil 1,000 Mg Softgel] 1 CAP) PO SCH (09:00)
[2019-03-18] MEDS ORDERED: LISINOPRIL-HCTZ 10-12.5 MG 1 EACH TAB PO SCH (09:00)
[2019-03-18] MEDS ORDERED: VITAMIN D3 PO SCH (09:00)
[2019-03-18] MEDS ORDERED: VIT K1 PO SCH (09:00)
[2019-03-18] MEDS ORDERED: TAMSULOSIN 0.4 MG CAP.ER.24H PO SCH (09:00)
[2019-03-18] MEDS ORDERED: NON-FORMULARY DRUG (Ubidecarenone [Co Q-10] 200 MG) PO SCH (09:00)
[2019-03-18] MEDS ORDERED: ASPIRIN 325 MG TAB PO SCH (09:00)
[2019-03-18] MEDS ORDERED: [UNRECOGNIZED DRUG - OTHER] PO SCH (09:00)
--- NOTE | 2019-03-18 11:10 | ECHOF ---
Referral Reason:assess for pericardial effusion MEASUREMENTS -------- HEIGHT: 180.3 cm WEIGHT: 72.1 kg BP: 128/61 IVSd: 1.5 cm (0.6 - 1.1) LVIDd: 3.9 cm (3.9 - 5.3) LVPWd: 2.1 cm (0.6 - 1.1) IVSs: 1.3 cm LVIDs: 3.0 cm LVPWs: 1.4 cm RAP: 5.00 mmHg RVSP: 37.28 mmHg FINDINGS -------- Sinus rhythm. LIMTED STUDY Overall left ventricular systolic function is normal with, an EF between 55 - 60 %. Lumason used Mild tricuspid regurgitation present. There is mild pulmonary hypertension. The right ventricular systolic pressure, as measured by Doppler, is 37.28mmHg. There is no pericardial effusion. CONCLUSIONS -------- 1. Sinus rhythm. 2. LIMTED STUDY 3. Overall left ventricular systolic function is normal with, an EF between 55 - 60 %. 4. Lumason used 5. Mild tricuspid regurgitation present. 6. There is mild pulmonary hypertension. 7. The right ventricular systolic pressure, as measured by Doppler, is 37.28mmHg. 8. There is no pericardial effusion. UX UI DESIGNER: Noy Hinton RDCS
[2019-03-18 12:11] VITALS: BP 128/74; PULSE 47; RESP 16; TEMP 98.2
--- NOTE | 2019-03-18 12:13 | P.CRDCN ---
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 He follows in the office with Dr. Oconnor. We have been asked to see him in consultation for chest pain. He states he has been experiencing chest pain intermittently for the last week. The pain is across his chest and described as a tight sensation. The pain is worse with deep inspiration and improves when he sits down and takes slow even breaths. There is no radiation through to the back, no pain down the arm, nothing in the neck or jaw. He has had some associ ated cough with green sputum at times. There is no associated shortness of breath, dizziness, palpitations, nausea or vomiting. He also complains of ongoing fatigue. He states he had this fatigue prior to his cardioversion and was expected to improved which it hasn't. Telemetry tracings reveal sinus bradycardia. Primary team held his zestoretic since admission. EKG reveals sinus mechanism with sinus arrhythmia, heart rate 60. Telemetry shows persistent sinus mechanism with episodes of bradycardia. Chest xray reveals pleural reaction at the left lung base and left basilar atelectasis. Peribronchial cuffing suggestive of bronchitis. CT chest reveals left non-displaced 4-7th rib fractures with underlying pleural thickening. Previous granulomatous disease. No mention of aorta in the report, discussed with radiologist Dr. Gasca and he states the aorta was normal with no evidence of dissection or aneurysm. Laboratory data reviewed, WBC 6.5, hemoglobin 15.2, platelets 220, d-dimer 0.27, sodium 143, potassium 4.7, creatinine 0.68, mesion 1.8, cardiac enzymes negative 3, LDL 93. Current cardiac medications include Eliquis 5 mg twice a day, Zestoretic 10/12.5 mg daily and pravastatin 20 mg daily. ÁNGELA/cardioversion 01/2019 ejection fraction 45-50%, contrast bubble study revealed no shunting across the intra-atrial septum. Recent Lexiscan stress test in the office 12/2018 was negative for reversible cardiac ischemia. At the time of my exam: CONSTITUTIONAL: Denies fever. Denies chills. EYES: Denies blurred vision. Denies vision changes. Denies eye pain. EARS, NOSE, MOUTH & THROAT: Denies headache. Denies sore throat. Denies ear pain. CARDIOVASCULAR: Denies chest pain. Denies shortness of breath. Denies orthopnea. Denies PND. Denies palpitations. RESPIRATORY: Denies cough. GASTROINTESTINAL: Denies abdominal pain. Denies diarrhea. Denies constipation. Denies nausea. Denies vomiting. MUSCULOSKELETAL: Denies myalgias. INTEGUMENTARY: Denies pruitis. Denies rash. NEUROLOGIC: Denies numbness. Denies tingling. Denies weakness. PSYCHIATRIC: Denies anxiety. Denies depression. ENDOCRINE: Denies fatigue. Denies weight change. Denies polydipsia. Denies polyurina. GENITOURINARY: Denies burning, hematuria or urgency with micturation. HEMATOLOGIC: Denies history of anemia. Denies bleeding. Blood pressure 160/88 heart rate 54 afebrile maintaining oxygen saturation on room air GENERAL: This is a 79-year-old male in no apparent distress at the time of my examination. HEENT: Head is atraumatic, normocephalic. Pupils are equal, round. Sclerae anicteric. Conjunctivae are clear. Mucous membranes of the mouth are moist. Neck is supple. There is no jugular venous distention. No carotid bruit is heard. LUNGS: Clear to auscultation no wheezes, rales or rhonchi. No chest wall tenderness is noted on palpation or with deep breathing. HEART: Regular, slow rate and rhythm without murmurs, rubs or gallops. S1 and S2 heard. ABDOMEN: Soft, nontender. Bowel sounds are heard. No organomegaly noted. EXTREMITIES: No evidence of peripheral edema and no calf tenderness noted. VASCULAR: Radial and dorsalis pedis pulses palpated, no evidence of clubbing. NEUROLOGIC: Patient is awake, alert and oriented x3. ASSESSMENT Chest pain, pleuritic. Atypical for angina. An acute coronary event has been ruled out. Possible bronchitis. 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 Maintaining sinus mechanism Hypertension Sinus bradycardia Dyslipidemia PLAN An acute event has been ruled out. Pain is pleuritic and not suggestive of kindra na. Will obtain limited echo to assess for presence of pericardial effusion. Resume zestoretic as this will not contribute to bradycardia. He recently wore a monitor for Dr. Oconnor, consider chronotrophic response with heart rate. Can be cause for his chronic fatigue. If echo is normal, he is stable for discharge from a cardiac perspective. Follow up with Dr. Oconnor in 2 weeks. Thank you kindly for this consultation. Nurse Practitioner note has been reviewed, I agree with a documented findings and plan of care. Patient was seen and examined. Past Medical History Past Medical History: Atrial Fibrillation, GERD/Reflux, Hyperlipidemia, Hypertension, Pneumonia, Prostate Disorder Additional Past Medical History / Comment(s): cardioversion for afib and her current rhythm is sinus, hypertension, hyperlipidemia, BPH, obesity with a BMI of 32.1, remote history of pneumothorax History of Any Multi-Drug Resistant Organisms: None Reported Past Surgical History: Tonsillectomy Additional Past Surgical History / Comment(s): eye muscle surgery, punctured lung repair, Cataract marva eye. Past Anesthesia/Blood Transfusion Reactions: Motion Sickness Past Psychological History: No Psychological Hx Reported Smoking Status: Never smoker Past Alcohol Use History: None Reported Past Drug Use History: None Reported - Past Family History Mother Family Medical History: Cancer Additional Family Medical History / Comment(s): skin cancer Medications and Allergies Home Medications Medication Instructions Recorded Confirmed Type Calcium Carb/Vitamin D3/Vit K1 1 each PO DAILY 03/27/18 03/17/19 History [Viactiv Soft Chew] Lisinopril-Hctz 10-12.5 mg 1 tab PO DAILY 03/27/18 03/17/19 History [Zestoretic 10-12.5] Omeprazole 20 mg PO DAILY 03/27/18 03/17/19 History Potassium Chloride [Klor-Con 10 meq PO DAILY 03/27/18 03/17/19 History Sprinkle] Pravastatin Sodium [Pravachol] 20 mg PO HS 03/27/18 03/17/19 History Tamsulosin [Flomax] 0.4 mg PO DAILY 03/27/18 03/17/19 History Ubidecarenone [Co Q-10] 200 mg PO DAILY 03/27/18 03/17/19 History Apixaban [Eliquis] 5 mg PO BID #0 01/29/19 03/17/19 Rx Neurobrin 1 cap PO DAILY 03/17/19 03/17/19 History [place]-3 Fatty Acids/Fish Oil [Fish 1 cap PO DAILY 03/17/19 03/17/19 History Oil 1,000 mg Softgel] Oxybutynin Chloride [Ditropan XL] 10 mg PO DAILY 03/17/19 03/17/19 History Allergies Allergy/AdvReac Type Severity Reaction Status Date / Time Sulfa (Sulfonamide Allergy Rash/Hives Verified 03/17/19 09:41 Antibiotics) Physical Exam Vitals: Vital Signs Temp Pulse Pulse Pulse Resp BP BP 03/18/19 03:35 98.4 F 46 L 54 L 16 128/61 03/18/19 00:00 97.5 F L 46 L 16 149/77 03/17/19 19:57 98.4 F 54 L 19 146/84 03/17/19 16:00 98.0 F 46 L 18 147/70 03/17/19 12:00 97.6 F 50 L 18 144/80 03/17/19 09:10 97.4 F L 46 L 18 128/68 03/17/19 08:47 97.9 F 57 L 18 141/81 Pulse Ox 03/18/19 03:35 92 L 03/18/19 00:00 95 03/17/19 19:57 94 L 03/17/19 16:00 93 L 03/17/19 12:00 96 03/17/19 09:10 95 03/17/19 08:47 95 Intake and Output 03/17/19 03/18/19 03/18/19 22:59 06:59 14:59 Other: Voiding Method Toilet # Voids 5 Results 03/18/19 05:36 03/18/19 05:36 Cardiac Enzymes 03/17/19 03/17/19 03/18/19 Range/Units 12: 18:52 05:36 AST 39 (17-59) U/L Troponin I <0.012 <0.012 (0.000-0.034) ng/mL Lipids 03/18/19 Range/Units 05:36 Triglycerides 187 H (<150) mg/dL Cholesterol 171 (<200) mg/dL HDL Cholesterol 41 (40-60) mg/dL CBC 03/18/19 Range/Units 05:36 WBC 6.5 (3.8-10.6) k/uL RBC 4.72 (4.30-5.90) m/uL Hgb 15.2 (13.0-17.5) gm/dL Hct 45.2 (39.0-53.0) % Plt Count 220 (150-450) k/uL Comprehensive Metabolic Panel 03/18/19 Range/Units 05:36 Sodium 143 (137-145) mmol/L Potassium 4.7 (3.5-5.1) mmol/L Chloride 104 (98-107) mmol/L Carbon Dioxide 32 H (22-30) mmol/L BUN 12 (9-20) mg/dL Creatinine 0.68 (0.66-1.25) mg/dL Glucose 108 H (74-99) mg/dL Calcium 9.4 (8.4-10.2) mg/dL AST 39 (17-59) U/L ALT 51 (21-72) U/L Alkaline Phosphatase 51 (38-126) U/L Total Protein 7.5 (6.3-8.2) g/dL Albumin 4.4 (3.5-5.0) g/dL Current Medications Generic Name Dose Route Start Last Admin Trade Name Freq PRN Reason Stop Dose Admin Apixaban 5 mg 03/17/19 21:00 03/17/19 21:43 Eliquis PO 5 mg BID KATLYN Administration Aspirin 325 mg 03/18/19 09:00 Aspirin PO DAILY KATLYN Miscellaneous Information 1 each 03/17/19 14:17 Rx Info: Iv Contrast Was Given MISCELLANE 03/19/19 14:17 DAILY PRN Per Protocol Nitroglycerin 0.4 mg 03/17/19 08:14 Nitrostat SUBLINGUAL Q5M PRN Chest Pain Oxybutynin Chloride 10 mg 03/17/19 21:00 03/17/19 21:44 Ditropan Xl PO 10 mg HS KATLYN Administration Pantoprazole Sodium 40 mg 03/17/19 11:54 03/17/19 12:16 Protonix PO 40 mg [id number] KATLYN Administration Potassium Chloride 10 meq 03/18/19 09:00 K-Dur 10 PO DAILY AKTLYN Pravastatin Sodium 20 mg 03/17/19 21:00 03/17/19 21:44 Pravachol PO 20 mg HS KATLYN Administration Tamsulosin HCl 0.4 mg 03/17/19 21:00 03/17/19 21:44 Flomax PO 0.4 mg HS KATLYN Administration Intake and Output 03/17/19 03/18/19 03/18/19 22:59 06:59 14:59 Other: Voiding Method Toilet # Voids 5 03/18/19 05:36 03/18/19 05:36
--- NOTE | 2019-03-18 14:01 | P.DS ---
Providers Date of admission: 03/17/19 08:15 Expected date of discharge: 03/18/19 Attending physician: Andres Anders Consults: 03/17/19 08:15 Consult Physician Urgent Consulting Provider: Porfirio Oconnor Consult Reason/Comments: Unstable angina Do you want consulting provider notified?: Yes 03/17/19 13:47 Consult Physician Urgent Consulting Provider: Viral Farley Consult Reason/Comments: Chest X ray result Do you want consulting provider notified?: Yes Primary care physician: Avery Singh [facility] Course: Discharge diagnosis 1. Chest pain. Troponin negative. D-dimer 0.27. EKG completed showing normal sinus rhythm with sinus arrhythmia. Chest x-ray completed showing pleural reaction the left lung base and left basilar atelectasis. Peribronchial cuffing on the lateral view suggesting reactive or infectious airway disease such as bronchitis. Enlarged cardiomediastinal silhouette. No priors for comparison of stability. 2-D echo completed showing EF of 55-60%. Per cardiology on acute coronary event has been ruled out. Chest pain possibly related to bronchitis. CT completed per pulmonary services showing left nondisplaced fourth, fifth and sixth and seventh rib fractures underlying pleural thickening and left lower lobe and scarring and atelectasis findings suggestive previous granulomatous disease. Patient to be cleared by pulmonary prior to discharge this was discussed with nursing staff. 2. Recent cardioversion in January for atrial fibrillation 3. History of persistent atrial fibrillation. Patient maintained on eliquis 4. Bradycardia. 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 Heart rate currently in the 40s. Patient's home medication of lisinopril hydrochlorothiazide currently on hold until evaluated by cardiology. Discussed case with cardiology ROLLER HAND Amie arias to resume zestoretic. Patient asymptomatic. Patient to follow-up outpatient with cardiology services 5. History of GERD 6. History of hyperlipidemia. Statin resumed 7. History of essential hypertension 8. History of pneumonia 9. History of prostate disorder 10. Previous history of pneumonia thorax with rib fractures approximately 15 years prior. Patient denies any recent injury. CT of the chest showing left nondisplaced fourth fifth sixth and seventh rib fractures with underlying pleural thickening and left lower lobe scarring and atelectasis findings suggestive previous granulomatous disease. Patient to be cleared seen by pu lmonology prior to discharge Hospital course This is a 79-year-old male patient of Dr. Browning. Patient presented with complaints of chest pressure that has been occurring intermittently for 2-3 days. Patient reports that it feels like a band around his chest. Patient recently underwent cardioversion for atrial fibrillation in January with Dr. Oconnor. Patient has a past medical history of atrial fibrillation which she is maintained on eliquis, GERD, hyperlipidemia, hypertension, pneumonia, prostate disorder and tonsillectomy. Patient reports any recent illness. 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 Chest x-ray completed showing pleural reaction at the lung base and left basal atelectasis. Bronchial cuffing on the lateral view suggesting reactive or infectious airway disease such as bronchitis. Enlarged cardiomediastinal silhouette. No priors for comparison of stability. EKG completed showing normal sinus rhythm with sinus arrhythmia. Troponin negative. D-dimer 0.27. Cardiology services have been consulted. At this time patient denies any chest pain or shortness of breath. Patient denies nausea vomiting or diarrhea. Patient denies any urinary burning or frequency. On 03/18/2019 patient is alert and oriented 3. Patient denies any chest pain or shortness of breath. Patient denies nausea vomiting diarrhea. Denies any urinary burning or frequency. Patient has been cleared for discharge from cardiology standpoint. 2-D echo was reviewed and discussed with radiology ROLLER HAND. Patient remains bradycardic. Cardiology aware will follow-up outpatient with patient no changes to medication per cardiology. Computed tomography scan of chest completed per pulmonary ordered. Patient to be seen and cleared by pulmonary services prior to discharge. This was discussed with patient's nurse. I performed an examination of the patient and discussed their management with the Nurse Practitioner. I have reviewed the Nurse Practitioner's notes and agree with the documented findings and plan of care Patient Condition at Discharge: Stable Plan - Discharge Summary Discharge Rx Participant: No New Discharge Prescriptions: Continue Omeprazole 20 mg PO DAILY Calcium Carb/Vitamin D3/Vit K1 [Viactiv Soft Chew] 1 each PO DAILY Ubidecarenone [Co Q-10] 200 mg PO DAILY Tamsulosin [Flomax] 0.4 mg PO DAILY Potassium Chloride [Klor-Con Sprinkle] 10 meq PO DAILY Lisinopril-Hctz 10-12.5 mg [Zestoretic 10-12.5] 1 tab PO DAILY Pravastatin Sodium [Pravachol] 20 mg PO HS Apixaban [Eliquis] 5 mg PO BID #0 Oxybutynin Chloride [Ditropan XL] 10 mg PO DAILY [place]-3 Fatty Acids/Fish Oil [Fish Oil 1,000 mg Softgel] 1 cap PO DAILY Neurobrin 1 cap PO DAILY Discharge Medication List Calcium Carb/Vitamin D3/Vit K1 [Viactiv Soft Chew] 1 each PO DAILY 03/27/18 [History] Lisinopril-Hctz 10-12.5 mg [Zestoretic 10-12.5] 1 tab PO DAILY 03/27/18 [History] Omeprazole 20 mg PO DAILY 03/27/18 [History] Potassium Chloride [Klor-Con Sprinkle] 10 meq PO DAILY 03/27/18 [History] Pravastatin Sodium [Pravachol] 20 mg PO HS 03/27/18 [History] Tamsulosin [Flomax] 0.4 mg PO DAILY 03/27/18 [History] Ubidecarenone [Co Q-10] 200 mg PO DAILY 03/27/18 [History] Apixaban [Eliquis] 5 mg PO BID #0 01/29/19 [Rx] Neurobrin 1 cap PO DAILY 03/17/19 [History] [place]-3 Fatty Acids/Fish Oil [Fish Oil 1,000 mg Softgel] 1 cap PO DAILY 03/17/19 [History] Oxybutynin Chloride [Ditropan XL] 10 mg PO DAILY 03/17/19 [History] Follow up Appointment(s)/Referral(s): Porfirio Oconnor MD [STAFF PHYSICIAN] - 2 Weeks Avery Browning MD [Primary Care Provider] - 1-2 days Activity/Diet/Wound Care/Special Instructions: Activity as tolerated Diet heart healthy Discharge Disposition: HOME SELF-CARE
--- NOTE | 2019-03-18 15:53 | P.PN ---
Subjective Progress Note Date: 03/18/19 On today's evaluation, the patient is chest pain-free. As mentioned earlier his troponins were negative and EKG was showing a normal sinus rhythm. Chest x-ray showed a questionable pleural reaction on the left and for that reason a computed tomography scan of the chest was done with contrast that showed old healed fractures without any acute abnormalities involving the lungs. No evidence of any pulmonary embolism. No evidence of any lung masses. There is questionable evidence of old granulomatous disease exposures. In any rate, the patient is chest pain-free. Is ambulating. He is on long-term articulation with Eliquis regarding atrial fibrillation. He has acid reflux and hyperlipidemia and hypertension. Objective - Vital Signs Vital signs: Vital Signs Temp 98.2 F 03/18/19 12:00 Pulse 47 L 03/18/19 12:00 Resp 16 03/18/19 12:00 BP 128/74 03/18/19 12:00 Pulse Ox 95 03/18/19 12:00 Intake & Output 03/17/19 03/18/19 03/18/19 18:59 06:59 18:59 Intake Total 600 Balance 600 Intake: Oral 600 Other: Voiding Method Toilet Toilet # Voids 5 2 - Exam The patient appeared well nourished and normally developed. Vital signs as do cumented. Head exam is unremarkable. No scleral icterus or corneal arcus noted. Neck is without jugular venous distension, thyromegaly, or carotid bruits. Carotid upstrokes are brisk bilaterally. Lungs are clear to auscultation and percussion. Cardiac exam reveals the PMI to be normally sized and situated. Rhythm is regular. First and second heart sounds normal. No murmurs, rubs or gallops. Abdominal exam reveals normal bowel sounds, no masses, no organomegaly and no aortic enlargement. Extremities are nonedematous and both femoral and pedal pulses are normal.Examination of the skin revealed no evidence of significant rashes, suspicious appearing nevi or other concerning lesions. Neurologically the patient is awake and alert and there is no focal neurological deficits. - Labs CBC & Chem 7: 03/18/19 05:36 03/18/19 05:36 Labs: Abnormal Lab Results - Last 24 Hours (Table) 03/18/19 Range/Units 05:36 Carbon Dioxide 32 H (22-30) mmol/L Glucose 108 H (74-99) mg/dL Triglycerides 187 H (<150) mg/dL Assessment and Plan Plan: 1 chest pain, nonspecific, and the cardiac workup has been completed and the patient will be followed up with cardiology on outpatient basis. Meanwhile the CAT scan of the chest showed old rib fractures without any acute abnormalities. The patient is cleared from the pulmonary standpoint. 2 history of atrial fibrillation current rhythm is sinus post cardioversion 3 hypertension 4 hyperlipidemia 5 BPH 6 obesity Plan Reviewed the CAT scan of the chest. No active pulmonary issues for now. Discharge per cardiology and medicine. Follow-up with me if needed on outpatient basis.
== END 2019-03-18 15:00 | disposition home or self-care (01) ==
LOC: EC 06:00 → 1SOBS 08:15
PROVIDERS: ADMIT Internal Medicine; ATTEND Internal Medicine
DX: R07.89 Other chest pain (principal); R07.81 Pleurodynia; R05 Cough; R53.83 Other fatigue; I48.0 Paroxysmal atrial fibrillation; I48.1 Persistent atrial fibrillation; R00.1 Bradycardia, unspecified; I10 Essential (primary) hypertension; K21.9 Gastro-esophageal reflux disease without esophagitis; E78.5 Hyperlipidemia, unspecified; S22.49XA Multiple fractures of ribs, unspecified side, initial encounter for closed fracture; J98.11 Atelectasis; N40.0 Benign prostatic hyperplasia without lower urinary tract symptoms; E66.9 Obesity, unspecified; Z68.32 Body mass index [BMI] 32.0-32.9, adult; Z79.01 Long term (current) use of anticoagulants; Z79.899 Other long term (current) drug therapy; Z87.01 Personal history of pneumonia (recurrent); Z87.09 Personal history of other diseases of the respiratory system; Z88.2 Allergy status to sulfonamides; Z80.8 Family history of malignant neoplasm of other organs or systems; X58.XXXA Exposure to other specified factors, initial encounter
CPT/HCPCS: 96360; 99285; 36415; 93005; 85379; 84439; 83880; 80061; 80053 ×2; 84443; 83735; 84484; 85025 ×2; 85610; 85730; 71046; 71260; G0378 ×2; C8924; Q9950; Q9967; 93308

== ENCOUNTER → 2019-12-28 | Outpatient (CLI) | payer MEDICARE | END | disposition home or self-care (01) | LOC: LABWHC1 15:22 | PROVIDERS: ATTEND Internal Medicine Interventional Cardiology | DX: Z11.59 Encounter for screening for other viral diseases (principal) | CPT/HCPCS: 87635 ==

== ENCOUNTER 2019-12-30 06:01 | Day surgery (SDC) | payer MEDICARE ==
[2019-12-29 14:34] VITALS: BMI 33.3
[~2019-12-30 06:01] MED LIST changes: +LIDOCAINE 1% (10MG/ML) FOR IV START INTRADERMA PRN; +LIDOCAINE 1% INJ 10MG/ML (20 ML MDV) ONE; +MIDAZOLAM 2 MG/2 ML VIAL ONE; +PHENYLEPHRINE-0.9% NACL SYG 1 MG/10 ML SYRINGE ONE; +PROPOFOL 10 MG/ML 20 ML VIAL IV ONE; +ROCURONIUM BROMIDE 10 MG/ML 5 ML VIAL IV ONE; +SODIUM CHLORIDE 0.9% 1,000 ML IV SCH; +SUCCINYLCHOLINE CHLORIDE 100 MG/5 ML SYR IV ONE; +fentaNYL (PF) 50 MCG/ML 2 ML AMP ONE
[2019-12-30] MEDS ORDERED: SODIUM CHLORIDE 0.9% 500 ML 500 ML IV ONE (06:16)
[2019-12-30 06:22] VITALS: TEMP 97.8
[2019-12-30 06:48] LABS: African American GFR (CKD) >90 (>60 ml/min/1.73 sqM); Anion Gap 8 mmol/L; Blood Urea Nitrogen 14 mg/dL (9-20); Calcium 8.8 mg/dL (8.4-10.2); Carbon Dioxide 28 mmol/L (22-30); Chloride 102 mmol/L (98-107); Glucose 111 mg/dL (74-99); Non-African American GFR(CKD) >90 (>60 ml/min/1.73 sqM); Potassium 4.2 mmol/L (3.5-5.1); Sodium 138 mmol/L (137-145)
[2019-12-30] MEDS ORDERED: PROPOFOL 10 MG/ML 20 ML VIAL IV ONE (07:04)
[2019-12-30] MEDS ORDERED: BENZOCAINE SPRAY 1 CAN MUCOUS MEM ONE ×2 (07:15→07:20)
[2019-12-30] MEDS ORDERED: SODIUM CHLORIDE 0.9% 1,000 ML IV SCH (07:45)
[2019-12-30 08:06] VITALS: RESP 18
[2019-12-30 08:37] VITALS: BP 110/74
[2019-12-30] MEDS ORDERED: LISINOPRIL-HCTZ 10-12.5 MG 1 EACH TAB PO SCH (09:00)
[2019-12-30] MEDS ORDERED: VIT K1 PO SCH (09:00)
[2019-12-30] MEDS ORDERED: OXYBUTYNIN 10 MG TAB.ER.24 PO SCH (09:00)
[2019-12-30] MEDS ORDERED: [UNRECOGNIZED DRUG - OTHER] PO SCH (09:00)
[2019-12-30] MEDS ORDERED: VITAMIN D3 PO SCH (09:00)
[2019-12-30] MEDS ORDERED: NON FORMULARY DRUG (Ubidecarenone [Co Q-10] 200 MG) PO SCH (09:00)
[2019-12-30] MEDS ORDERED: CALCIUM CARB PO SCH (09:00)
[2019-12-30 09:14] VITALS: PULSE 70
--- NOTE | 2019-12-30 09:25 | ECHOT ---
TRANSESOPHAGEAL ECHOCARDIOGRAM INDICATION: Evaluation left atrial appendage. PROCEDURE: After explaining the procedure to the patient, its risks and complications, his blood pressure, heart rate, O2 saturation was monitored. The throat was sprayed with Cetacaine. He received sedation per Anesthesia Department. The probe was introduced into the esophagus without difficulty. Images were obtained. Following that, the probe was removed, there was no immediate complication. FINDINGS: Left atrial size is dilated. Left atrial appendage is normal. Left ventricular size is normal. There is evidence of global hypokinesis, estimated ejection fraction 45%. The aortic valve revealed mild fibrocalcific change of the aortic cusp with preserved opening. Mitral valve appears to be normal. Tricuspid valve is normal. Descending thoracic aorta appears to be normal. No pericardial effusion was noted. Contrast bubble study revealed no evidence of shunting across the interatrial septum. Doppler pulse wave and color Doppler obtained and revealed mild mitral and tricuspid regurgitation. There was no shunting by color Doppler study. CONCLUSION: 1. Dilated left atrium with normal appearance left atrial appendage. 2. Normal left ventricular size with mild global hypokinesis. 3. Mild mitral and tricuspid regurgitation. 4. No shunting across the interatrial septum. 5. No pericardial effusion. MMODL / IJN: [id number] /
--- NOTE | 2019-12-30 10:01 | CE ---
CARDIAC ELECTROPHYSIOLOGY REPORT INDICATION: Atrial fibrillation. PROCEDURE: After explaining the procedure to the patient, its risks and complications, his blood pressure, heart rate, O2 saturation was monitored. After performing transesophageal echocardiogram, a synchronized biphasic cardioversion using 200, 250 and subsequently 300 joules were performed to restore normal sinus rhythm. There was no immediate complication. ETHAN / TACHO: [id number] /
[2019-12-30] MEDS ORDERED: FLECAINIDE 50 MG TAB PO SCH (21:00)
[2019-12-30] MEDS ORDERED: PRAVASTATIN SODIUM 20 MG TAB PO SCH (21:00)
[2019-12-30] MEDS ORDERED: APIXABAN 2.5 MG TABLET PO SCH (21:00)
[2019-12-31] MEDS ORDERED: POTASSIUM CHLORIDE 10 MEQ PO SCH (09:00)
[2019-12-31] MEDS ORDERED: NON FORMULARY DRUG (Omeprazole [Omeprazole] 20 MG) PO SCH (09:00)
[2019-12-31] MEDS ORDERED: TAMSULOSIN 0.4 MG CAP.ER.24H PO SCH (09:00)
== END 2019-12-30 09:25 | disposition home or self-care (01) ==
LOC: CATHCVL 06:01
PROVIDERS: ATTEND Internal Medicine Interventional Cardiology
DX: I08.1 Rheumatic disorders of both mitral and tricuspid valves (principal); I48.19 Other persistent atrial fibrillation; I10 Essential (primary) hypertension; G47.33 Obstructive sleep apnea (adult) (pediatric); E78.2 Mixed hyperlipidemia; K21.9 Gastro-esophageal reflux disease without esophagitis; Z79.01 Long term (current) use of anticoagulants; Z79.899 Other long term (current) drug therapy; Z88.2 Allergy status to sulfonamides; Z90.89 Acquired absence of other organs
CPT/HCPCS: 93312; 93320; 93325; 92960; 80048; 87635; J2704

== ENCOUNTER → 2020-02-08 | Outpatient (CLI) | payer MEDICARE ==
--- NOTE | 2020-02-08 20:40 | CONS ---
CONSULTATION REASON FOR CONSULTATION: Sleep apnea. This is an 80-year-old male patient who was having paroxysmal atrial fibrillation, currently in sinus rhythm post cardioversion. There was a concern about sleep apnea, and for that reason the patient was referred to me. He has mild soft snoring. No witnessed apneas. No chronic hypersomnia or sleepiness. He goes to bed around 11 p.m., wakes up at 5 a.m. in the morning, wakes up a few times in the middle of the night for urination. He is averaging around 6-7 hours of sleep per night. No angina. No palpitation. No shortness of breath overnight. No grinding of the teeth. No sleepwalking or sleeptalking. No dry mouth. No anxiety or depression. No panic attacks. No heartburn. No restlessness in his lower extremities. His weight has been stable without any significant weight gain or weight loss. He sleeps on his back and his side without any issues. No sleep paralysis. No hallucinations. No cataplexy. PAST MEDICAL HISTORY: Paroxysmal atrial fibrillation, hyperlipidemia, hypertension, stress urinary incontinence, acid reflux and obesity. PAST SURGICAL HISTORY: Tonsillectomy, colonoscopy and chest tube insertion for pneumothorax. SOCIAL HISTORY: The patient is a nonsmoker. No history of alcoholism. No history of IV drugs. DRUG ALLERGIES: SULFA. OUTPATIENT MEDICATION LIST: Outpatient list includes pravastatin 20 mg p.o. daily, lisinopril/hydrochlorothiazide 10/12.5 one tablet a day, potassium 10 mEq daily, oxybutynin 10 mg p.o. daily, Eliquis 5 mg p.o. daily, omeprazole 20 mg p.o. daily, flecainide 50 mg p.o. daily, multivitamin and calcium. FAMILY HISTORY: The patient has 2 sons, both of whom have obstructive sleep apnea. REVIEW OF SYSTEMS: Fourteen-point review of systems was done. Positive findings were all mentioned above in the history of present illness. His current [place] score is 14. PHYSICAL EXAMINATION: BP is 130/73, pulse 52, respirations 16, temperature 98, saturation 95% on room air. Height is 5 feet 11 inches, weight is 235, BMI 32.7. Neck size is 17 inches. GENERAL APPEARANCE: Calm, comfortable. HEAD: Atraumatic, normocephalic. NECK: Supple. No JVD. No goiter or neck masses. Mallampati class II. LUNGS: Clear to auscultation. HEART: Heart sounds are regular rate and rhythm. Normal S1, S2. No S3, S4. No murmurs. ABDOMEN: Soft, nontender. No organomegaly. EXTREMITIES: No edema. No cyanosis or clubbing. NEUROLOGIC: Awake and alert. There is no focal neurological deficit. IMPRESSION: 1. Paroxysmal atrial fibrillation, currently in normal sinus rhythm; consider obstructive sleep apnea. 2. Chronic snoring. 3. Mild hypersomnia with [place] score of 14. 4. Obesity with a body mass index of 32.7. 5. Hyperlipidemia. 6. Hypertension. 7. Stress urinary incontinence. 8. Acid reflux. PLAN: 1. Clinically the patient is not having any major symptoms to support diagnosis of obstructive sleep apnea. Nevertheless, based on his history of snoring and his BMI of 32.7 in addition to an [place] score of 14, I think it is worthwhile to do a home sleep study to screen this patient for obstructive sleep apnea, especially since the patient is having paroxysmal atrial fibrillation. 2. Encourage weight loss. 3. Implement good sleep hygiene measures. 4. Avoid alcoholic beverages and caffeine late at nighttime. 5. Will continue to follow and will make further recommendations for this patient, should there be any positivity in his home sleep study. MMCONSTANCEL / RINN: [id number] /
== END | disposition home or self-care (01) ==
LOC: SLEEP 16:10
PROVIDERS: ATTEND Internal Medicine Critical Care Medicine
DX: G47.10 Hypersomnia, unspecified (principal); R06.83 Snoring; I48.0 Paroxysmal atrial fibrillation; E66.9 Obesity, unspecified; E78.5 Hyperlipidemia, unspecified; I10 Essential (primary) hypertension; N39.3 Stress incontinence (female) (male); K21.9 Gastro-esophageal reflux disease without esophagitis; Z68.32 Body mass index [BMI] 32.0-32.9, adult; Z79.899 Other long term (current) drug therapy; Z79.01 Long term (current) use of anticoagulants
CPT/HCPCS: 99211

== ENCOUNTER → 2020-06-06 | Outpatient (CLI) | payer MEDICARE ==
--- NOTE | 2020-06-06 16:07 | PN ---
PROGRESS NOTE Attila is an 80 year old and he is coming in for a compliancy check. I recently diagnosed the patient having severe obstructive sleep apnea with an AHI of 53. The patient is currently on CPAP pressure of 15 cm of water. He reports marked improvement in sleep quality and he is much more refreshed and alert during the day and he is liking his machine significantly to the point where he has been wearing it every night and his compliancy indicates that. He has use of CPAP machine is 100%. He has used CPAP machine for more than 4 hours is 100%. He has been averaging around 8.2 hours of CPAP use per night and his AHI is down to 5 while on treatment and his leak is in order of 110 L/minute while using a Simplus full-face mask. No aerophagia. No gastric distention media. No chest pain, shortness of breath overnight. He is waking up much more refreshed and alert during the day. His [place] score is down to 8. PHYSICAL EXAMINATION: BP is 126/66, pulse is 54, respirations 16, temperature 97.6, weight is 231. Saturation 95% on room air. GENERAL APPEARANCE: Calm, comfortable. HEAD: Atraumatic, normocephalic. NECK: Supple, there is no JVD. No goiter or neck masses, Mallampati class 4. LUNGS: Clear to auscultation. HEART: Heart sounds are regular rate and rhythm, normal S1, S2, no murmurs. ABDOMEN: Soft, nontender, no organomegaly. EXTREMITIES: No edema no cyanosis or clubbing. NEUROLOGIC: Awake and alert, there is no focal neurological deficit. IMPRESSION: 1. Obstructive sleep apnea, severe with an AHI of 54. The patient underwent a successful CPAP treatment and currently the patient is being treated with a CPAP pressure of 15 cm of water. 2. Hypersomnia, improved, [place] score is down to 8. 3. Morbid obesity with a BMI of 32.9. 4. Paroxysmal atrial fibrillation. 5. Hypertension. 6. Hyperlipidemia. 7. History of acid reflux. PLAN: 1. Continue CPAP therapy at same level of pressure without need for any adjustment. 2. Continue using the Simplus full-face mask, which is a medium size. I am also going to try the patient on an AirFit F20 as an alternative mask as the patient is having significant amount of leaks around the mask. Despite air leaks, the patient is successfully treated. His AHI is down to 5. 3. Encourage weight loss. 4. Implement good sleep hygiene measures. 5. Will continue to follow and make further recommendations based on the overall clinical progress. MMODL / IJN: [id number] /
== END | disposition home or self-care (01) ==
LOC: SLEEP 14:24
PROVIDERS: ATTEND Internal Medicine Critical Care Medicine
DX: G47.33 Obstructive sleep apnea (adult) (pediatric) (principal); G47.10 Hypersomnia, unspecified; E66.01 Morbid (severe) obesity due to excess calories; I48.0 Paroxysmal atrial fibrillation; Z68.32 Body mass index [BMI] 32.0-32.9, adult; I10 Essential (primary) hypertension; E78.5 Hyperlipidemia, unspecified; Z87.19 Personal history of other diseases of the digestive system; Z99.89 Dependence on other enabling machines and devices